=== PATIENT | female | born 1965 ===

== ENCOUNTER 2017-09-04 19:57 | Emergency (ER) | payer OTHER ==
[~2017-09-04] VITALS: Ht 157.5 cm; Wt 51.7 kg
[2017-09-04] MEDS ORDERED: FOLIC ACID1 M1 PO (20:37)
[2017-09-04] MEDS ORDERED: HYDROXYZINE PAM25 M2 PO (20:38)
[2017-09-04] MEDS ORDERED: CHANTIX1 EACH PO (20:38)
[2017-09-04] MEDS ORDERED: CLONIDINE HCL0.1 MG PO (20:38)
[2017-09-04] MEDS ORDERED: VITAMIN D250000 UNIT PO (20:39)
[2017-09-04] MEDS ORDERED: TRAZODONE HCL100 M1 PO (20:39)
[2017-09-04] MEDS ORDERED: ESCITALOPRAM OX10 MG PO (20:39)
[2017-09-04 20:53] LABS: ABSOLUTE BASOPHIL COUNT 0.1 /CUMM (0.0-0.2); ABSOLUTE EOSINOPHIL COUNT 0.1 /CUMM (0.0-0.7); ABSOLUTE GRANULOCYTE CT 2.5 /CUMM (1.4-6.5); ABSOLUTE MONOCYTE COUNT 0.5 /CUMM (0.10-0.60); BASOPHIL % 0.6 % (0.0-2.0); EOSINOPHIL % 1.1 % (0-5); GRANULOCYTE % 30.3 % (42.2-75.2); HEMATOCRIT 40.3 % (37-47); MEAN CORPUSCULAR HGB 34.2 PG (27.0-31.0); MEAN CORPUSCULAR HGB CONC 34.4 G/DL (33.0-37.0); MEAN CORPUSCULAR VOLUME 99.2 FL (81.0-99.0); MEAN PLATELET VOLUME 6.9 FL (7.4-10.4); PLATELET COUNT 177 /CUMM (130-400); RBC DISTRIBUTION WIDTH 12.8 % (11.5-14.5); RED BLOOD CELL CT 4.07 /CUMM (4.20-5.40); WHITE BLOOD CELL COUNT 8.1 /CUMM (4.8-10.8)
--- NOTE | 2017-09-04 22:35 | ED PSYCHIATRIC COMPLAINT ---
See Addendum History of Present Illness General Chief Complaint: Psychiatric Related Complaint Stated Complaint: SI, INTOXICATED Source: patient, EMS Exam Limitations: no limitations Vital Signs & Intake/Output Vital Signs & Intake/Output Vital Signs Date Time Temp Pulse Resp B/P B/P Pulse O2 O2 Flow FiO2 Mean Ox Delivery Rate 09/08 1121 Room Air Room Air 09/08 1044 97.8 80 20 139/87 92 Room Air 09/08 0823 97.9 74 15 133/85 09/08 0823 97.9 74 15 133/85 95 Room Air Room Air 09/08 0536 97.2 91 18 139/90 95 Room Air 09/08 0012 98.0 63 16 145/65 96 Room Air 09/07 1912 98.0 70 18 152/92 97 Room Air 09/07 1425 97.8 67 18 151/89 97 Room Air Allergies Coded Allergies: No Known Allergies (09/04/17) Reconcile Medications Clonidine HCl 0.1 MG TABLET 0.5-1 TAB PO BID PRN UNKNOWN (Reported) Ergocalciferol (Vitamin D2) (Vitamin D2) 50,000 UNIT CAPSULE 1 CAP PO QW SUPPLEMENT (Reported) Escitalopram Oxalate 10 MG TABLET 1 TAB PO DAILY MENTAL HEALTH (Reported) Folic Acid 1 MG TABLET 1 TAB PO DAILY SUPPLEMENT (Reported) Hydroxyzine Pamoate 25 MG CAPSULE 1 CAP PO 4XDAILY PRN ANXIETY (Reported) Trazodone HCl 100 MG TABLET 1 TAB PO QHS MENTAL HEALTH/SLEEP (Reported) Varenicline Tartrate (Chantix) 0.5 MG (11)-1 MG (42) TAB.DS.PK SMOKING CESSATION (Reported) Triage Note: THE PATIENT WAS FOUND ON THE FLOOR AT [facility]. PATIENT STATES SHE IS HOMELESS. PATIENT ADMITS TO DRINKING 24 OZ OF BEER AND 3-4 SHOTS OF MARIMAR. THE PATIENT STATES SHE IS DEPRESSED WITH SI Triage Nurses Notes Reviewed? yes Onset: Abrupt Duration: day(s): (1), constant, continues in ED, getting worse Timing: recent history Severity: mild, moderate Associated Symptoms: anxiety, impaired concentration, suicidal ideation LMP (ages 10-50): post menopausal : No Patient currently breastfeeds: No HPI: 52-year-old female past medical history of alcohol abuse, anxiety, depression brought in by ambulance for evaluation of alcohol intoxication and depression. Patient was found sitting on the floor very intoxicated at a [facility]. She reported to EMS that she was suicidal. She currently denies any plan but states that she has thought of multiple things she would do or could do to hurt herself. She states that if she leaves the hospital she will try to kill herself. She denies any previous history of suicide attempts or depression. She states that she has been drinking an unknown amount of beer and hard alcohol today. She states that she has been drinking every day. She denies any history of alcohol withdrawal seizures or withdrawal. She denies any drug abuse. No chest pain or shortness of breath. (Alessio Saab) Past History Travel History Traveled to [place] past 21 day No Medical History Any Pertinent Medical History? 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 No (Alessio Saab) Review of Systems Review of Systems Constitutional: Reports: no symptoms. EENTM: Reports: no symptoms. Respiratory: Reports: no symptoms. Cardiovascular: Reports: no symptoms. GI: Reports: no symptoms. Genitourinary: Reports: no symptoms. Musculoskeletal: Reports: no symptoms. Skin: Reports: no symptoms. Neurological/Psychological: Reports: see HPI, anxiety, depressed. Hematologic/Endocrine: Reports: no symptoms. Immunologic/Allergic: Reports: no symptoms. All Other Systems: Reviewed and Negative (Alessio Saab) Physical Exam Physical Exam General Appearance: no apparent distress, alert, awake, anxious, intoxicated Head: atraumatic, normal appearance Eyes: Bilateral: normal appearance, PERRL, EOMI. Ears, Nose, Throat: normal pharynx, normal ENT inspection, hearing grossly normal Neck: normal inspection, supple, full range of motion Respiratory: normal breath sounds, chest non-tender, no respiratory distress, lungs clear Cardiovascular: regular rate/rhythm, normal peripheral pulses Gastrointestinal: normal bowel sounds, soft, non-tender, no organomegaly Extremities: normal range of motion Neurological/Psychiatric: no motor/sensory deficits, awake, alert, anxious Appearance/Memory/Insight: disheveled, impaired insight Behavoir/Eye Contact/Speech: cooperative, normal speech, refused to answer Thoughts/Hallucinations: no apparent hallucination Skin: intact, normal color, warm/dry SAD PERSONS SAD PERSONS Response Value Age <19 or >45 years? yes 1 Depression/Hopelessness? yes 2 Excessive Ethanol/Drug Use? yes 1 Rational Thinking Loss? yes 2 Single//? yes 1 Total 7 SAD PERSONS Done? yes (Alessio Saab) Progress Differential Diagnosis: drug intoxication, drug overdose, drug withdrawal, electrolyte abnormality Plan of Care: Orders Procedure Date/time Status Continuous Observation Monitor 09/08 0700 Active Continuous Observation Monitor 09/08 0300 Active Continuous Observation Monitor 09/07 2300 Active Continuous Observation Monitor 09/07 1900 Active Current Medications Sig/Vern Start time Last Medication Dose Stop Time Status Admin Non-Formulary 1 UNIT Q168 09/14 1000 UNVr Medication (NON FORMULARY) Hydroxyzine HCl 25 MG Q6P PRN 09/07 1500 AC (Atarax) Lorazepam 2 MG Q2P PRN 09/07 1500 AC (Ativan) Lorazepam 1 MG Q2P PRN 09/07 1500 AC (Ativan) Escitalopram Oxalate 10 MG DAILY 09/07 1452 UNVr 09/08 (Lexapro) 1015 Folic Acid 1 MG DAILY 09/07 1452 UNVr 09/08 (Folic Acid) 09/09 1001 1015 Multivitamins 1 TAB DAILY 09/07 1452 UNVr 09/08 (Theragran Vitamins) 1015 Thiamine HCl 100 MG DAILY 09/07 1452 UNVr 09/08 (Vitamin B1) 09/09 1001 1015 Trazodone HCl 100 MG QPM 09/05 2200 UNVr 09/07 (Desyrel) 2309 Patient seen and evaluated. She currently suicidal and very intoxicated. Her alcohol level is 423. She is refusing to answer most questions but does report that if she leaves the hospital she'll try to hurt herself. Blood work shows hypernatremia to a level of 151. Patient was given water to drink to increase her free water. Patient will be held overnight to see crisis in the morning. Patient sent to the Farhat Franco MD pending crisis eval (Alessio Saab) 7:19 AM 09/05 PATIENT SIGNED OUT TO ME BY DR FRANCO. PENDING CRISIS EVALUATION AND DISPOSITION. 6:02 PM PATIENT WILL REQUIRE INPATIENT CRISIS ADMISSION. BED SEARCH IN PROGRESS. (Elizabeth Roman MD) Hand-Off Endorsed To: Farhat Franco MD Endorsed Time: 0116 Pending: consult (CRISIS) (Alessio Saab) Hand-Off Endorsed To: Tima Ramesh MD Endorsed Time: 190 Pending: consult (BED SEARCH) (Elizabeth Roman MD) Comments: 09/05/2017 7:19:28 AM patient signed out to Dr. Roman at shift change person. 09/08/2017 7:57:21 AM patient signed out to me by Dr. Roach at shift change person. Patient is resting comfortably. (Farhat Franco MD) Hand-Off Endorsed To: Farhat Forde DO Endorsed Time: 07 Pending: consult (Tima Ramesh MD) Hand-Off Endorsed To: Farhat Forde DO Endorsed Time: 07 Pending: consult (Sammy DE LA CRUZ,Chet Hart) Hand-Off Endorsed To: Faraht Franco MD Endorsed Time: 07 Pending: other (bed search) (Bro Roach MD) Departure Departure Condition: Stable Clinical Impression Primary Impression: Suicidal ideation Secondary Impressions: Alcohol intoxication Qualifiers: Complication of substance-induced condition: uncomplicated Qualified Code: F10.920 - Alcohol use, unspecified with intoxication, uncomplicated Referrals: Unknown (PCP/Family) Departure Forms: Customer Survey General Discharge Information (Alessio Saab) Departure Disposition: OTHER [facility] (Farhat Franco MD) PA/LEATHER TOOLER Co-Sign Statement Statement: ED Attending supervision documentation- [] I saw and evaluated the patient. I have also reviewed all the pertinent lab results and diagnostic results. I agree with the findings and the plan of care as documented in the PA's/LEATHER TOOLER's documentation. [X] I have reviewed the ED Record and agree with the PA's/LEATHER TOOLER's documentation. [] Additions or exceptions (if any) to the PAs/LEATHER TOOLER's note and plan are summarized below: [] (Farhat Forde DO)
--- NOTE | 2017-09-05 17:23 | ED PSYCH CRISIS CONSULTATION ---
See Addendum Crisis Consult Basic Assessment Date of Consult: 09/05/17 Responsible Person/Accompanied By: Self Insurance Authorization: Insurance #1: Insurance name: CHARLES FELIPE Phone number: Policy number: [id number] Group number: Authorization number: ED Provider: Patient's ED Provider: Elizabeth Roman MD Primary Care Physician: Patient's PCP: Unknown PCP's Phone Number: Current Psychiatrist: Mohamud Lao MD Chief Complaint: Psychiatric Related Complaint Patient's Quote: I'm just depressed" Present Illness: Pt is a 52 year old single famale BIBA, pt was found passed out on the floor at [facility]. Pt said she was drop off at [facility] at 3:30pm on 09/04 by "Huyen" a woman he was living with in [place] since May,. [facility] was not open and so she went across the street to [facility], she remember going to the bathroom and "I must've blacked out" at [facility] because she drank a 24oz bottle of beer prior to going to [facility] and she had a pint of Janeen in her person. Pt reports she is feeling suicidal and thought about jumping off a bridge or running infront of a car. Pt denies any past attempts of suicide. Pt reports she has been drinking a 12 pack of Beer at least twice weekly. She states she was in a rehab program in [facility] in and upon discharge she came to [place] to live with her friend Huyen. Upon interviewing the pt, she was alert and oriented x3. Pt denies having hallucinations but continues to say that she feels hopeless and suicidal. Pt reports depressed mood and increased anxiety. Pt was calm and cooperative during the interview but very guarded. Pt states that she has been participating in outpatient services at [facility] since June,. She attends group for an hour weekly. Pt was prescribed Lexapro, Vistaril and Trazadone. Pt's case specialist is John Rebolledo. Pt has a history of inpatient admission which was approximately 10 years ago. She was admitted to [facility] for depressive symptoms. Also she reports having suicidal ideations 7 years ago when she broke up with a then boyfriend, but not reports of suicide attempt. Pt has a history of inpatient admission for substance abuse and was admitted to [facility] for alcohol abuse disorder. Recently in May she was admitted to Rehab in [place] for Alcohol Use Disorder. Pt's Utox was negative for substances but pt admitted to drinking alcohol on . Patient's Address: [address] [place] [address] Other Phone Number: Who Do You Live With? Other (see notes) (Homeless) Family/Informants Interviewed: no family/collateral ID'd Allergies - Coded Allergies: No Known Allergies (09/04/17) Current Medications - Scheduled Medications Ergocalciferol (Vitamin D2) (Vitamin D2) 50,000 UNIT CAPSULE 1 CAP PO QW SUPPLEMENT #8 (Reported) Entered as Reported by Tasha Westfall on 09/04/172038 Escitalopram Oxalate 10 MG TABLET 1 TAB PO DAILY MENTAL HEALTH #30 (Reported) Entered as Reported by Tasha Westfall on 09/04/172038 Folic Acid 1 MG TABLET 1 TAB PO DAILY SUPPLEMENT #30 (Reported) Entered as Reported by Tasha Westfall on 09/04/172036 Trazodone HCl 100 MG TABLET 1 TAB PO QHS MENTAL HEALTH/SLEEP #30 (Reported) Entered as Reported by Tasha Westfall on 09/04/172038 Scheduled PRN Medications Clonidine HCl 0.1 MG TABLET 0.5-1 TAB PO BID PRN UNKNOWN #60 (Reported) Entered as Reported by Tasha Westfall on 09/04/172037 Hydroxyzine Pamoate 25 MG CAPSULE 1 CAP PO 4XDAILY PRN ANXIETY #120 (Reported ) Entered as Reported by Tasha Westfall on 09/04/172037 Miscellaneous Medications Varenicline Tartrate (Chantix) 0.5 MG (11)-1 MG (42) TAB.DS.PK SMOKING CESSATION (Reported) Entered as Reported by Tasha Westfall on 09/04/172037 Last Taken: Unknown Dose at an unknown date and time Past History Past Medical History Neurological: NONE EENT: NONE Cardiovascular: NONE Respiratory: NONE Gastrointestinal: NONE Hepatic: NONE Renal: NONE Musculoskeletal: R SHOULDER SURGERY R HIP SURGERY Psychiatric: alcohol dependence, depression Endocrine: NONE Cancer(s): NONE 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: 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 Past Surgical History Surgical History: non-contributory Psychosocial History Strengths/Capabilities: Pt participates in treatment at [facility] Physical Limitations (Interventions): None reported Psychiatric Treatment History Psych Treatment Psychiatric Treatment Yes Inpatient Treatment No Outpatient Treatment Yes Location of Treatment [facility] Reason for Treatment Depression Dates of Treatment May to Response to Treatment Pt attends weekly groups Diagnosis by History: Depression Alcohol use disorder Substance Use/Abuse History Drug Use/Abuse Substances Used/Abused Yes Substance Used/Abused Alcohol First Use 30s Last Used 09/04/17 How much used/taken 24oz bottle of beer How often Weekly For how long 3 months Route of use Oral Substance Abuse Treatment Substance Abuse Treatment Past Substance Abuse TX Yes Inpatient Treatment Yes Outpatient Treatment Yes Location of Treatment [facility] Reason for Treatment Alcohol use disorder Dates of Treatment March to May, Response to Treatment Relapse Current Mental Status Mental Status Orientation: Person, Place, Situation Affect: Anxious, Depressed, Sad Speech: Soft Neuro-vegetative: Concentration Poor, Helpless, Sleep Disturbance Appearance Appearance- Dress/Hygiene: Disheveled, unkempt Behaviors Thought Process: WNL Thought Content: Somatic Memory: WNL Insight: Fair SI/HI Risk Assessment Past Suicidal Ideation/Attempts Yes Current Suicidal Ideation/Att Yes Past Homicidal Ideation/Att: No Current Homicidal Ideation/Attempts No Degree of Intent: Plan, States Intent Danger To: Self Gravely Disabled: Poor Judgment Risk Factors: chronic/serious med cond., high anxiety/distress, SA/MH hospitalized, substance abuse, isolate/no social support, limited support Lethality Ratin PTSD Checklist PTSD Done? patient declined ED Management Sitter: Yes Restraints: No DSM5/PS Stressors/Medical Prob Diagnosis' (DSM 5, Stressors, Medical): F33.2 Depressive Disorder Recurrent Severe, F41.1 Anxiety F10.20 Alcohol Use Disorder Moderate, G47.00 Insomnia Disorder, Z59.0 Homelessness Current GAF: 20 Departure Disposition Psych Medical Clearance Date: 09/05/17 Medically Cleared at: 0400 Time Started: 0430 Time Ended: 0500 Psychiatrist Consulted: Mohamud Lao MD Date Disposition Established: 09/05/17 Time Disposition Established: 0700 Plan for Disposition - Modality: Bed Search Follow-up Appt Date: 09/06/17 Follow-Up Appt Time: 0800 Contact: Crisis Telephone: [phone] Rationale for Disposition: Pt presents to the ED with suicidal ideation and plan to jump off a bridge. Pt has a history of depression with current mood depressed and feeling hopeless and helpless. Also, pt reports drinking weekly for the past 3 months and on 09/04/17 experienced a black out in [facility] after drinking [address] Lao recommended [facility] protocol to monitor pt for alcohol withdrawal symptoms to rule out admission for alcohol detox. Additional Instructions: Dr. Lao recommends [facility] protocol. Referrals Unknown (PCP/Family)
--- NOTE | 2017-09-06 13:47 | ED PSYCHIATRIST/APRN CONSULT ---
Psychiatrist/ARNP ED Consult Assessment and Plan: ED psychiatry consult Chart reviewed, discussed with crisis SW. Interviewed patient this morning. Briefly, 52 y/o undomiciled, unemployed CF with longstanding history of co- occurring mood disorder and alcohol use disorder who was brought in severely intoxicated (BAL > 400) along with laboratory derangements c/w chronic heavy alcohol use. On presentation, reports suicidal ideation with plan to jump off a bridge or run in front of traffic, and reports previous history of SI. She has a history of previous psychiatric and substance use hospitalizations/rehabs. Today she remains quite depressed, neurovegetative, anhedonic, and continues to have suicidal thoughts wtih same plan as noted above. She demonstrates essentially no protective factors. She reports very intermittent adherence with treatment at [facility], prescribed lexapro, vistaril, and trazodone, which she says she takes occasionally. She denies substance use aside from EtOH. She denies any history of complicated withdrawal. She reports drinking "a 12 pack twice a week". A/P: Unspecified depressive disorder; r/o alcohol-induced depressive disorder; severe alcohol use disorder. She presents as a danger to herself and we will attempt to arrange inpatient hospitalization on a voluntary basis. Would suggest monitoring CIWAs. Trazodone for sleep is ok.
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
[2017-09-08 12:48] VITALS: BP 130/80
== END 2017-09-08 12:59 | disposition other institution (70) ==
LOC: ERH 19:57
PROVIDERS: Physician Assistant Medical
DX: R45.851 Suicidal ideations (principal); F10.920 Alcohol use, unspecified with intoxication, uncomplicated
CPT/HCPCS: 80307; G0463; G0480; J1650; J3490